=== PATIENT | female | born 1990 | race African-American/Black ===

== ENCOUNTER 2019-07-26 13:53 | Emergency (ER) | payer BC, SELFPAY | END 2019-07-26 15:00 | disposition home or self-care (01) | LOC: EEVIPCON 13:53 → ERS 13:53 | DX: L73.2 Hidradenitis suppurativa (principal) | CPT/HCPCS: 99282 ==

== ENCOUNTER 2019-08-28 08:45 | Emergency (ER) | payer BC, SELFPAY ==
[2019-08-28] MEDS ORDERED: Metoclopramide HCl 10 MG TAB ONE (09:34)
[2019-08-28] MEDS ORDERED: diphenhydrAMINE 25 MG CAP ONE (09:34)
== END 2019-08-28 10:45 | disposition short-term general hospital (02) ==
LOC: ERS 08:45
DX: L73.2 Hidradenitis suppurativa (principal); R51 Headache
CPT/HCPCS: 99283; Q0163

== ENCOUNTER 2019-11-16 08:57 | Emergency (ER) | payer BC ==
[2019-11-16] MEDS ORDERED: Famotidine 20 MG TAB ONE (09:34)
[2019-11-16] MEDS ORDERED: Mag-Al 1200 mg/1200 mg/30 ML UDCUP ONE (09:34)
[2019-11-16] MEDS ORDERED: Lidocaine Viscous Sol 2% 15 ml UD Cup ONE (09:34)
== END 2019-11-16 10:13 | disposition home or self-care (01) ==
LOC: ERS 08:57
DX: K21.9 Gastro-esophageal reflux disease without esophagitis (principal)
CPT/HCPCS: 93005

== ENCOUNTER 2020-08-13 08:33 | Emergency (ER) | payer BC | END 2020-08-13 09:22 | disposition home or self-care (01) | LOC: ERS 08:33 | DX: L73.2 Hidradenitis suppurativa (principal) | CPT/HCPCS: 99282 ==

== ENCOUNTER 2020-10-07 02:50 | Emergency (ER) | payer BC | END 2020-10-07 03:15 | disposition home or self-care (01) | LOC: ERS 02:50 | DX: T81.89XA Other complications of procedures, not elsewhere classified, initial encounter (principal) | CPT/HCPCS: 99283 ==

== ENCOUNTER 2024-06-12 20:09 | Emergency (ER) | payer BC, SELFPAY | END 2024-06-12 20:35 | disposition home or self-care (01) | LOC: ERS 20:09 | DX: K64.9 Unspecified hemorrhoids (principal) | CPT/HCPCS: 99282 ==